=== PATIENT | female | born 1985 | race Two or more races ===

== ENCOUNTER 2017-09-16 11:18 | Emergency (ER) | payer OTHER ==
[~2017-09-16] VITALS: Ht 154.9 cm; Wt 56.7 kg
[2017-09-16] MEDS ORDERED: IBUPROFEN 600 MG TABLET PO ONE ×2 (11:29→11:30)
[2017-09-16 11:44] VITALS: BP 121/91
== END 2017-09-16 12:58 | disposition home or self-care (01) ==
LOC: ER 11:19
DX: S63.502A Unspecified sprain of left wrist, initial encounter (principal); S20.219A Contusion of unspecified front wall of thorax, initial encounter; V49.49XA Driver injured in collision with other motor vehicles in traffic accident, initial encounter; Y93.89 Activity, other specified; Y92.89 Other specified places as the place of occurrence of the external cause; Y99.8 Other external cause status
CPT/HCPCS: 71045; 73090; 73110; 99284; A4606; Z7610